=== PATIENT | female | born 1960 ===

== ENCOUNTER 2016-11-07 10:53 | Emergency (ER) | payer OTHER ==
[2016-11-07 10:54] VITALS: BMI 33.5
--- NOTE | 2016-11-07 11:26 | ED PDOC ---
Arrival/HPI - General Historian: Patient, Partner - History of Present Illness Time/Duration: 24 hours Symptom Onset: Sudden Quality: Pressure, Tightness, Throbbing Severity Level: 7 Activities at Onset: Rest <Darya Ramirez - Last Filed: 11/07/16 15:01> <Westley Lincoln - Last Filed: 11/07/16 15:55> - General Chief Complaint: Chest Pain Time Seen by Provider: 11/07/16 10:55 - History of Present Illness Narrative History of Present Illness (Text): 11/07/16 11:39 56 yo F w h/o active tobacco abuse (45 pack year history), HTN, HLD, IDDM2, COPD , anxiety, medical noncompliance presents to ER with c/o L arm tingling, L-sided , 6/10 tight CP, mild , PAREDES, R jaw "pulsing pain" x 1 yesterday and since resolved, nose bleed x 1 yesterday that has not recurred. Patient states she was resting at home, sitting on the couch watching TV when she started noting L arm tingling, L-sided CP and SOB. Nose bleed reportedly lasted 2-3 minutes and resolved with compression of mid-nasal bridge. Pateint states she had similar symptoms approximately 2 years ago at which time she underwent L heart catheterization (02/01/2015) which revealed clean coronaries and did not require any stenting. Patient had cardiac stress test 12/22/2015 which revealed normal myocardial perfusion and normal wall motion of left ventricle. Denies rashes, abd pain, n/v/d/c, fevers, chills, edema. (Daray Ramirez) Past Medical History - Provider Review Nursing Documentation Reviewed: Yes - Travel History Have you recently traveled outside [place] w/in the past 3 mons?: No - Infectious Disease Hx of Infectious Diseases: None - Tetanus Immunization Tetanus Immunization: Up to Date - Reproductive Menopause: No - Cardiac Hx Cardiac Disorders: Yes Hx Hyperlipemia: Yes Hx Hypertension: Yes Hx Pacemaker: No - Pulmonary Hx Respiratory Disorders: Yes Hx Chronic Obstructive Pulmonary Disease (COPD): Yes - Neurological Hx Paralysis: No - Endocrine/Metabolic Hx Diabetes Mellitus Type 2: Yes - Hematological/Oncological Hx Blood Transfusions: No Hx Blood Transfusion Reaction: No - Musculoskeletal/Rheumatological Hx Falls: No - Psychiatric Hx Anxiety: Yes Hx Emotional Abuse: No Hx Physical Abuse: No Hx Substance Use: No - Surgical History Hx Cardiac Catheterization: Yes (no stents) Hx Hysterectomy: Yes - Anesthesia Hx Anesthesia Reactions: No Hx Malignant Hyperthermia: No - Suicidal Assessment Feels Threatened In Home Enviroment: No <Darya Ramirez - Last Filed: 11/07/16 15:01> Family/Social History Family/Social History: Diabetes, Hypertension Smoking Status: Heavy Smoker > 10 Cigarettes Daily (1.5 packs x >30years) Hx Alcohol Use: No Hx Substance Use: No <Darya Ramirez - Last Filed: 11/07/16 15:01> Allergies/Home Meds <Darya Ramirez - Last Filed: 11/07/16 15:01> <Westley Lincoln - Last Filed: 11/07/16 15:55> Allergies/Adverse Reactions: Allergies doxycycline Allergy (Severe, Verified 11/07/16 11:05) CHEST PAIN Home Medications: Home Meds Medication Instructions Recorded Confirmed Spironolactone 25 mg PO TID 12/30/14 11/07/16 Esomeprazole Magnesium [Nexium] 40 mg PO QAM 01/19/15 11/07/16 Amitriptyline [Elavil] 25 mg PO BID 11/29/15 11/07/16 MetFORMIN [glucoPHAGE] 1,000 mg PO BID 11/29/15 11/07/16 Zolpidem [Ambien] 10 mg PO HS 11/29/15 11/07/16 Review of Systems - Review of Systems Constitutional: Fatigue. absent: Fevers, Night Sweats Eyes: absent: Vision Changes ENT: TMJ Pain (yesterday x 1, right, resolved ), Epistaxis (x1 yesterday, no recurrence) Respiratory: SOB. absent: Cough, Sputum, Wheezing Cardiovascular: Chest Pain (L-sided "tight"), PAREDES. absent: Palpitations, Edema , Calf Pain, Syncope Gastrointestinal: absent: Abdominal Pain, Stool Changes, Constipation, Diarrhea , Nausea, Vomiting Genitourinary Female: absent: Dysuria Musculoskeletal: absent: Neck Pain, Myalgias Skin: absent: Rash, Skin Lesions Neurological: Headache. absent: Dizziness, Focal Weakness <Darya Ramirez - Last Filed: 11/07/16 15:01> Physical Exam Vital Signs Reviewed: Yes Temperature: Afebrile Blood Pressure: Normal Pulse: Regular Respiratory Rate: Normal Appearance: Positive for: Well-Appearing, Comfortable Pain Distress: Mild Mental Status: Positive for: Alert and Oriented X 3 - Systems Exam Head: Present: Atraumatic, Normocephalic Pupils: Present: PERRL. No: Sluggish Extroacular Muscles: Present: EOMI. No: Gaze Palsy Conjunctiva: Present: Normal. No: Injected Mouth: Present: Moist Mucous Membranes Respiratory/Chest: Present: Clear to Auscultation, Good Air Exchange ( diminished all lung deshpande), Decreased Breath Sounds. No: Respiratory Distress , Accessory Muscle Use, Wheezes, Rales, Retracting, Rhonchi Cardiovascular: Present: Regular Rate and Rhythm, Normal S1, S2. No: Murmurs, Irregular Rhythm, Tachycardic Abdomen: Present: Normal Bowel Sounds, Other (obese). No: Tenderness, Distention, Peritoneal Signs, Rebound, Guarding Upper Extremity: Present: Normal Inspection. No: Edema Lower Extremity: Present: Normal Inspection, NORMAL PULSES, Capillary Refill < 2 s. No: Edema, CALF TENDERNESS Neurological: Present: GCS=15, CN II-XII Intact Skin: Present: Warm, Dry, Normal Color. No: Rashes Psychiatric: Present: Alert, Oriented x 3 <Darya Ramirez - Last Filed: 11/07/16 15:01> Vital Signs Temp Pulse Resp BP Pulse Ox 11/07/16 14:44 69 18 99/56 L 95 11/07/16 13:07 72 16 104/62 95 11/07/16 12:52 68 15 110/63 95 11/07/16 10:59 97.8 F 84 18 119/87 95 Medical Decision Making - Lab Interpretations I have reviewed the lab results: Yes Interpretation: Abnormal lab values (hypertriglyceridemia, hypercholesterolemia) - RAD Interpretation Card Sorter: Radiologist - EKG Interpretation Interpreted by ED Physician: Yes Type: 12 lead EKG <Darya Ramirez - Last Filed: 11/07/16 15:01> <Westley Lincoln - Last Filed: 11/07/16 15:55> ED Course and Treatment: 11/07/16 11:47 56 yo F w h/o medical noncompliance, HTN, HLD, IDDM2 presented with L CP, SOB, nose bleed, L arm tingling. CXR, EKG, labs with troponin sent. PERC score =1, D- dimer sent. ASA, SL Nitro PRN. 11/07/16 13:17 Patient re-evaluated. Admits to persistent CP, intermittent SOB, L arm tingling. Patient states she now also has a bifrontal headache after nitro. IVF started. 11/07/16 13:50 Spoke with PMD, Dr. Yadav, who requests to discharge patient home; he will come see patient in ER and followup in office. Will obtain another troponin (first trop was <0.01. Further plan based on repeat troponin result. Repeat EKG shows no changes. 11/07/16 14:02 Patient seen in ER by Dr. Yadav, states to discharge patient with outpatient followup. (Darya Ramirez) 11/07/16 12:07 Patient seen and examined with resident Came up with treatment and disposition plan with resident 11/07/16 15:49 Patient seen and examined in the emergency room by Dr. Yadav, states to discharge patient home with outpatient follow-up Patient currently in no distress, denies any complaints. pt's HEART score low. 2 sets of cardiac enzymes and an EKG ordered and are negative Patient's EKG shows a left bundle branch block which is not new. I had a long discussion with patient that our initial evaluation has not shown evidence of a heart attack. Patient verbalized understanding that even if these tests are normal, symptoms may still be a warning sign of a future heart attack and it is very important for patient to arrange outpatient cardiology follow up Patient was agreeable to observation in the emergency room, and understood that this will prolong the length of stay Had a long and extensive d/w patient about f/u with a voice pathologist for further workup and testing as well as a primary physician. Explained to patient that although her ER w/u did not show any acute abnormalities, patient still needs further testing which may include an echo, stress test, cardiac cath, or others. Pt states she understands to return to the ER right away for new or worsening symptoms or for inability to f/u with PMD or specialist as instructed. Patient states that she fully agrees with and understands discharge instructions. States that she agrees with the plan and disposition. Verbalized and repeated discharge instructions and plan. I have given the patient opportunity to ask any additional questions. (Westley Lincoln) - Lab Interpretations Lab Results: 11/07/16 11:28 11/07/16 11:28 Lab Results 11/07/16 14:35: Troponin I < 0.01 11/07/16 11:28: WBC 9.2, RBC 4.94, Hgb 14.5, Hct 41.6, MCV 84.2, MCH 29.4, MCHC 34.9, RDW 12.0, Plt Count 229, MPV 11.2 H, Gran % 61.0, Lymph % (Auto) 27.3, [place] % (Auto) 8.4 H, Eos % (Auto) 3.0, Baso % (Auto) 0.3, Gran # 5.60, Lymph # 2.5, [place] # 0.8 H, Eos # 0.3, Baso # 0.03, PT 10.2, INR 0.94, D-Dimer, Quantitative 0.33, Sodium 132, Potassium 4.7, Chloride 98, Carbon Dioxide 25, Anion Gap 14, BUN 17, Creatinine 0.7, Est GFR ( Amer) > 60, Est GFR (Non- Af Amer) > 60, Random Glucose 313 H* D, Calcium 9.7, Total Bilirubin 0.7, AST 24 , ALT 28, Alkaline Phosphatase 134 H, Troponin I < 0.01, Total Protein 9.1 H, Albumin 4.5, Globulin 4.6, Albumin/Globulin Ratio 1.0 L, Triglycerides 161 H, Cholesterol 208 H, LDL Cholesterol Direct 127, HDL Cholesterol 40 - RAD Interpretation Narrative RAD Interpretations (Text): 11/07/16 13:37 CXR - no active disease (Darya Ramirez) Radiology Orders: 11/07/16 11:21 CHEST TWO VIEWS (PA/LAT) [RAD] Stat - EKG Interpretation EKG Interpretation (Text): 11/07/16 11:49 NSR, 85bpm, LAD, LBBB, no changes vs 12/14/15 (Darya Ramirez) - Medication Orders Current Medication Orders: Nitroglycerin (Nitrostat Sl Tab) 0.4 mg SL Q5M PRN PRN Reason: Pain, moderate (4-7) Last Admin: 11/07/16 12:34 Dose: 0.4 MG Discontinued Medications Acetaminophen (Tylenol 325mg Tab) Confirm Administered Dose 650 mg .ROUTE .STK- MED ONE Stop: 11/07/16 15:37 Last Admin: 11/07/16 15:38 Dose: 650 MG MAR Pain/Vitals Document 11/07/16 15:38 SRE (Rec: 11/07/16 15:39 SRE [id number]) Pain Reassessment Is This A Pain ReAssessment? Yes Sleep Is patient sleeping during reassessment? No Presence of Pain Presence of Pain Yes Pain Scale Used Pain Scale Used Numeric Location Pain Location Body Verifying Machine Operator Description Intermittent Aspirin (Aspirin) 325 mg PO STAT STA Stop: 11/07/16 12:13 Last Admin: 11/07/16 12:34 Dose: 325 MG Disposition/Present on Arrival - Present on Arrival Any Indicators Present on Arrival: Yes History of DVT/PE: No History of Uncontrolled Diabetes: Yes Urinary Catheter: No History of Decub. Ulcer: No History Surgical Site Infection Following: None <Darya Ramirez - Last Filed: 11/07/16 15:01> - Present on Arrival Any Indicators Present on Arrival: No - Disposition Have Diagnosis and Disposition been Completed?: Yes Disposition Time: 15:54 Patient Plan: Discharge <Westley Lincoln - Last Filed: 11/07/16 15:55> - Disposition Diagnosis: Medical non-compliance, Chest pain, Hyperglycemia, Diabetes mellitus, insulin dependent (IDDM), uncontrolled, Tobacco abuse Disposition: HOME/ ROUTINE Patient Problems: Current Active Problems Problem Status Diagnosed Chest pain Acute Diabetes mellitus, insulin dependent (IDDM), uncontrolled Acute Hyperglycemia Acute Medical non-compliance Acute Tobacco abuse Acute Condition: STABLE Discharge Instructions (ExitCare): Chest Pain (ED), How to Stop Smoking (ED), Diabetes Mellitus Type 2 in Adults (ED), Weight Management (ED), Diabetic Hyperglycemia (ED) Print Language: ALB[place] Additional Instructions: Please followup with your primary care physician within 2-3 days. Referrals: Lee Yadav MD [Primary Care Provider] - Follow up with primary Forms: WORK NOTE
[2016-11-07 11:29] LABS: ADD MANUAL DIFF? NO
[2016-11-07 11:34] LABS: BASO # 0.03 K/mm3 (0.0-2.0); BASO % 0.3 % (0.0-3.0); EOS # 0.3 (0.0-0.7); HEMATOCRIT 41.6 % (36.0-48.0); LYMPH # 2.5 (1.2-3.4); LYMPH % 27.3 % (22.0-35.0); MEAN CELL VOLUME 84.2 fL (80.0-105.0); MEAN CORPUSCULAR HEMOGLOBIN 29.4 pg (25.0-35.0); MEAN CORPUSCULAR HGB CONC 34.9 g/dl (31.0-37.0); MEAN PLATELET VOLUME 11.2 fl (7.0-11.0); MONO # 0.8 (0.1-0.6); MONO % 8.4 % (1.0-6.0); PLATELET COUNT 229 10^3/uL (120.0-450.0); WHITE BLOOD COUNT 9.2 10^3/ul (4.5-11.0)
[2016-11-07 11:43] LABS: ALKALINE PHOSPHATASE 134 U/L (38-133); ALT/SGPT 28 U/L (7-56); AST/SGOT 24 U/L (15-39); BILIRUBIN,TOTAL 0.7 mg/dL (0.2-1.3); BLOOD UREA NITROGEN 17 mg/dL (7-21); CALCIUM 9.7 mg/dL (8.4-10.5); CARBON DIOXIDE 25 mmol/L (21-33); CHLORIDE 98 mmol/L (98-107); CHOLESTEROL 208 mg/dL (130-200); D DIMER 0.33 mg/L FEU (0-0.50); GFR AFRICAN-AMERICAN > 60; INR 0.94 (0.93-1.08); POTASSIUM 4.7 mmol/L (3.6-5.0); SODIUM 132 mmol/L (132-148); TOTAL PROTEIN 9.1 g/dL (5.8-8.3)
[2016-11-07 11:53] LABS: GLUCOSE,RANDOM 313 mg/dL (70-110)
[2016-11-07 12:02] LABS: TROPONIN I < 0.01 ng/mL
--- NOTE | 2016-11-07 13:03 | RAD ---
HISTORY: CP, SOB COMPARISON: No prior. TECHNIQUE: Chest PA and lateral FINDINGS: LUNGS: No active pulmonary disease. PLEURA: No significant pleural effusion identified. No pneumothorax apparent. CARDIOVASCULAR: Normal. OSSEOUS STRUCTURES: No significant abnormalities. VISUALIZED UPPER ABDOMEN: Normal. OTHER FINDINGS: None. IMPRESSION: No active disease.
[2016-11-07 16:04] VITALS: BP 98/59; PULSE 74; RESP 15; TEMP 98.3; O2SAT 97
--- NOTE | 2016-11-08 11:08 | CARD ---
APPROVED REPORT EKG Measurement Heart [id number] <Conclusion> Normal sinus rhythm Left bundle branch block Abnormal ECG
--- NOTE | 2016-11-08 11:13 | CARD ---
APPROVED REPORT EKG Measurement Heart [id number] <Conclusion> Normal sinus rhythm Left bundle branch block Abnormal ECG
== END 2016-11-07 16:04 | disposition home or self-care (01) ==
LOC: ED 10:53
DX: R07.9 Chest pain, unspecified (principal); E11.65 Type 2 diabetes mellitus with hyperglycemia; Z79.4 Long term (current) use of insulin; I10 Essential (primary) hypertension; E78.5 Hyperlipidemia, unspecified; F17.210 Nicotine dependence, cigarettes, uncomplicated; Z91.19 Patient's noncompliance with other medical treatment and regimen